=== PATIENT | female | born 1960 | race Caucasian/White ===

== ENCOUNTER 2019-05-24 20:26 | Emergency (ER) | payer OTHER, BC, SELFPAY ==
[2019-05-24 20:37] VITALS: BP 144/70; PULSE 71; RESP 16; TEMP 36.4; O2SAT 100
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
== END 2019-05-24 20:59 | disposition home or self-care (01) ==
PROVIDERS: Emergency Provider Emergency Medicine
DX: M25.552 Pain in left hip (principal); V49.49XA Driver injured in collision with other motor vehicles in traffic accident, initial encounter
CPT/HCPCS: 81003; 99282

== ENCOUNTER → 2023-10-30 11:01 | Outpatient (CLI) | payer OTHER, SELFPAY | PROVIDERS: Visit Provider Physician Assistant Medical | DX: R30.0 Dysuria (principal) | CPT/HCPCS: 87086 ==